=== PATIENT | male | born 1975 | race Two or more races ===

== ENCOUNTER 2020-05-30 17:03 | Emergency (ER) | payer OTHER ==
[~2020-05-30] VITALS: Ht 170.2 cm; Wt 72.7 kg
[~2020-05-30 17:03] MED LIST: LURA60TA PO
[2020-05-30 17:15] VITALS: BP 145/90
[2020-05-30] MEDS ORDERED: ACETAMINOPHEN 500 MG TABLET PO ONE (17:30)
== END 2020-05-30 18:24 | disposition home or self-care (01) ==
LOC: EMS 17:03
DX: S49.92XA Unspecified injury of left shoulder and upper arm, initial encounter (principal); F12.90 Cannabis use, unspecified, uncomplicated; V00.131A Fall from skateboard, initial encounter; Y93.51 Activity, roller skating (inline) and skateboarding; Y92.89 Other specified places as the place of occurrence of the external cause; Y99.8 Other external cause status

== ENCOUNTER 2021-01-04 14:34 | Inpatient (IN) | payer MEDICAID, OTHER ==
[~2021-01-04] VITALS: Ht 165.1 cm; Wt 76.0 kg
[2021-01-04] MEDS ORDERED: LORazepam 1 MG TABLET PO ONE (15:15)
[2021-01-04] MEDS ORDERED: HALOPERIDOL 5 MG TABLET PO ONE (15:15)
[2021-01-04 15:40] LABS: AMPHET/METH SCREEN,URINE NEGATIVE (NEGATIVE); BARBITURATE SCREEN, URINE NEGATIVE (NEGATIVE); BENZODIAZEPINES SCREEN,URINE NEGATIVE (NEGATIVE); CANNABINOID SCREEN,URINE POSITIVE (NEGATIVE); COCAINE SCREEN,URINE NEGATIVE (NEGATIVE); METHADONE SCREEN, URINE NEGATIVE (NEGATIVE); OPIATE SCREEN,URINE NEGATIVE (NEGATIVE)
[2021-01-04 15:42] LABS: PHENCYCLIDINE SCREEN,URINE NEGATIVE (NEGATIVE)
[2021-01-04 16:00] LABS: BASOPHILS % (AUTO) 0.6 % (0.0-2.0); EOSINOPHILS % (AUTO) 0.2 % (1.0-6.0); HEMATOCRIT 43.9 % (41-53); HEMOGLOBIN 14.7 g/dL (13.5-17.5); LYMPHOCYTES # (AUTO) 0.7 K/uL (1.0-4.8); LYMPHOCYTES % (AUTO) 7.8 % (22.0-44.0); MEAN CORPUSCULAR HEMOGLOBIN 32.9 pg (26.0-34.0); MEAN CORPUSCULAR HGB CONC 33.5 G/dL (31.0-37.0); MEAN CORPUSCULAR VOLUME 98 fL (80-100); MONOCYTES # (AUTO) 0.4 K/uL (0.1-1.0); MONOCYTES % (AUTO) 4.6 % (2.0-9.0); NEUTROPHILS # (AUTO) 7.8 K/uL (1.8-7.7); PLATELET COUNT (AUTO) 250 K/uL (150-450); RED BLOOD CELL COUNT(AUTO) 4.47 MIL/uL (4.50-5.90); RED CELL DISTRIBUTION WIDTH 13.7 % (11.5-14.5)
[2021-01-04 16:10] LABS: ANION GAP 8 mmol/L (8-16); CALCIUM, TOTAL 9.5 mg/dL (8.8-10.5); CARBON DIOXIDE 28 mmol/L (22-29); CHLORIDE 102 mmol/L (98-107); CREATININE 1.62 mg/dL (0.60-1.30); GLOMERULAR FILTR. RATE CALC 46 mL/min (>60); GLUCOSE,RANDOM 107 mg/dL (70-110); NEUTROPHILS % (AUTO) 86.8 % (40.0-70.0); POTASSIUM 5.1 mmol/L (3.5-5.1); SODIUM SERUM 138 mmol/L (136-145); UREA NITROGEN, BLOOD 13 mg/dL (7-18)
[2021-01-04 16:16] LABS: ALANINE AMINOTRANSFERASE 25 U/L (12-78); ALBUMIN 4.7 g/dL (3.4-5.0); ALKALINE PHOSPHATASE 54 U/L (46-116); ASPARTATE AMINOTRANSFERASE 20 U/L (15-37); BILIRUBIN,TOTAL 0.5 mg/dL (0.1-1.0)
[2021-01-04 17:07] LABS: COVID AG,FIA SOURCE NASOPHARYNGEAL
[2021-01-04] MEDS ORDERED: ZOLPIDEM TARTRATE 10 MG TABLET PO PRN (18:00)
[2021-01-04] MEDS ORDERED: HALOPERIDOL 5 MG TABLET PO PRN (18:00)
[2021-01-04 21:00] VITALS: BP 118/67
[2021-01-05 00:18] VITALS: BP 119/72
[2021-01-05 08:21] LABS: CHOL/HDL RATIO 4.4 (4.2-7.3); FREE T4 (FREE THYROXINE) 1.09 ng/dL (0.76-1.46); THYROID STIMULATING HORMONE 2.47 uIU/mL (0.36-3.74)
[2021-01-05 08:25] VITALS: BP 114/63
[2021-01-05 08:44] LABS: HEMOGLOBIN A1C 5.3 % (3.8-5.6)
[2021-01-05] MEDS ORDERED: MAGNESIUM HYDROXIDE SUSPENSION 30 ML UDCUP PO PRN (09:30)
[2021-01-05] MEDS ORDERED: OMEPRAZOLE 20 MG CAPSULE PO PRN (09:30)
[2021-01-05] MEDS ORDERED: BACITRACIN 28 GM OINTMENT TP PRN (09:30)
[2021-01-05] MEDS ORDERED: ACETAMINOPHEN 325 MG TABLET PO PRN (09:30)
[2021-01-05] MEDS ORDERED: BENZOCAINE/MENTHOL LOZENGE PO PRN (09:30)
[2021-01-05] MEDS ORDERED: CloNIDine HCL 0.1 MG TABLET PO PRN (09:30)
[2021-01-05] MEDS ORDERED: MAG HYDROX/AL HYDROX/SIMETH ES 30 ML SUSPENSION UDCUP PO PRN (09:30)
[2021-01-05] MEDS ORDERED: ONDANSETRON HCL 4 MG TABLET PO PRN (09:30)
[2021-01-05] MEDS ORDERED: IBUPROFEN 600 MG TABLET PO PRN (09:30)
[2021-01-05] MEDS ORDERED: DOCUSATE SODIUM 100 MG CAPSULE PO PRN (09:30)
[2021-01-05] MEDS ORDERED: PETROLATUM,WHITE 28 GM JELLY TP PRN (09:30)
[2021-01-05] MEDS ORDERED: LOPERAMIDE HCL 2 MG CAPSULE PO PRN (09:30)
[2021-01-05] MEDS ORDERED: ALBUTEROL SULFATE HFA 90 MCG/PUFF 8 GM INHALER IH PRN (09:30)
[2021-01-05 16:15] VITALS: BP 132/64
[2021-01-06 03:49] VITALS: BP 128/80
[2021-01-06 04:25] VITALS: BP 147/76
[2021-01-06] MEDS: LORazepam 2 MG TABLET PO PRN (04:30)
[2021-01-06 08:47] VITALS: BP 115/80
[2021-01-06 16:18] VITALS: BP 123/73
[2021-01-06] MEDS: LURASIDONE HCL 80 MG TABLET PO SCH (20:47)
[2021-01-07 03:45] VITALS: BP 116/83
[2021-01-07 08:39] VITALS: BP 140/92
[2021-01-07 16:14] VITALS: BP 123/84
[2021-01-07] MEDS: LURASIDONE HCL 80 MG TABLET PO SCH (20:07)
[2021-01-07] MEDS: LORazepam 2 MG TABLET PO PRN (21:27)
[2021-01-08 00:48] VITALS: BP 127/78
[2021-01-08 08:12] VITALS: BP 127/69
[2021-01-08 16:15] VITALS: BP 117/79
[2021-01-08] MEDS ORDERED: QUEtiapine FUMARATE 100 MG TABLET PO SCH (21:00)
[2021-01-09 00:21] VITALS: BP 124/77
[2021-01-09 07:30] LABS: COVID AG,FIA SOURCE NASOPHARYNGEAL
[2021-01-09 08:25] VITALS: BP 123/71
[2021-01-09 16:41] VITALS: BP 115/71
[2021-01-09] MEDS: QUEtiapine FUMARATE 300 MG TABLET PO SCH (20:52)
[2021-01-10 00:51] VITALS: BP 121/68
[2021-01-10 08:25] VITALS: BP 133/78
[2021-01-10 16:13] VITALS: BP 106/60
[2021-01-10] MEDS: QUEtiapine FUMARATE 300 MG TABLET PO SCH (21:00)
[2021-01-11 08:16] VITALS: BP 129/67
[2021-01-11 16:18] VITALS: BP 112/71
[2021-01-11] MEDS: QUEtiapine FUMARATE 300 MG TABLET PO SCH ×3 (20:14→20:17)
[2021-01-12 06:27] VITALS: BP 136/78
[2021-01-12 08:19] VITALS: BP 120/62
[2021-01-12] MEDS: QUEtiapine FUMARATE 300 MG TABLET PO SCH (16:24)
[2021-01-12 17:05] VITALS: BP 127/81
[2021-01-12] MEDS: LORazepam 2 MG TABLET PO PRN (19:26)
[2021-01-13 05:47] VITALS: BP 121/76
[2021-01-13 08:35] VITALS: BP 123/67
[2021-01-13 16:40] VITALS: BP 132/79
[2021-01-13] MEDS: QUEtiapine FUMARATE 300 MG TABLET PO SCH (21:22)
[2021-01-14 06:54] VITALS: BP 112/74
[2021-01-14 08:56] VITALS: BP 133/86
[2021-01-14 16:29] VITALS: BP 143/87
[2021-01-14] MEDS: QUEtiapine FUMARATE 300 MG TABLET PO SCH (20:25)
[2021-01-15 05:35] VITALS: BP 113/71
[2021-01-15 08:59] VITALS: BP 129/88
[2021-01-15 16:21] VITALS: BP 118/79
[2021-01-15] MEDS: QUEtiapine FUMARATE 300 MG TABLET PO SCH (20:10)
[2021-01-16 02:06] VITALS: BP 111/60
[2021-01-16 07:49] LABS: COVID AG,FIA SOURCE NASOPHARYNGEAL
[2021-01-16 08:39] VITALS: BP 100/66
[2021-01-16 16:19] VITALS: BP 114/82
[2021-01-16] MEDS: QUEtiapine FUMARATE 300 MG TABLET PO SCH ×2 (17:27→20:54)
[2021-01-17 06:06] VITALS: BP 107/66
[2021-01-17 08:15] VITALS: BP 114/66
[2021-01-17 16:24] VITALS: BP 136/82
[2021-01-17] MEDS: QUEtiapine FUMARATE 300 MG TABLET PO SCH (20:28)
[2021-01-18 00:51] VITALS: BP 110/62
[2021-01-18 08:25] VITALS: BP 123/74
[2021-01-18 16:21] VITALS: BP 112/66
[2021-01-18] MEDS: QUEtiapine FUMARATE 300 MG TABLET PO SCH (20:21)
[2021-01-19] VITALS: BP 131/81
[2021-01-19 11:10] VITALS: BP 127/91
[2021-01-19 16:21] VITALS: BP 140/82
[2021-01-19] MEDS: QUEtiapine FUMARATE 300 MG TABLET PO SCH (20:28)
[2021-01-20] VITALS: BP 107/72
[2021-01-20 09:04] VITALS: BP 107/72
[2021-01-20 16:36] VITALS: BP 110/79
[2021-01-20] MEDS: QUEtiapine FUMARATE 300 MG TABLET PO SCH (20:26)
[2021-01-21 05:56] VITALS: BP 116/80
[2021-01-21 08:38] VITALS: BP 110/65
[2021-01-21 16:16] VITALS: BP 129/87
[2021-01-21] MEDS: QUEtiapine FUMARATE 300 MG TABLET PO SCH (20:36)
[2021-01-22 00:18] VITALS: BP 108/70
[2021-01-22 08:09] VITALS: BP 136/63
[2021-01-22 16:20] VITALS: BP 126/80
[2021-01-22] MEDS: QUEtiapine FUMARATE 300 MG TABLET PO SCH (20:19)
[2021-01-23 04:13] VITALS: BP 124/77
[2021-01-23 07:50] LABS: COVID AG,FIA SOURCE NASAL SWAB
[2021-01-23 08:30] VITALS: BP 102/66
[2021-01-23] MEDS ORDERED: QUET300T2 PO (14:43)
== END 2021-01-23 17:44 | disposition home or self-care (01) | DRG 750 ==
LOC: EMS 14:34 → B2S 17:58
PROVIDERS: ADMIT Psychiatry & Neurology Psychiatry; ATTEND Psychiatry & Neurology Psychiatry
DX: F20.0 Paranoid schizophrenia (principal); R45.851 Suicidal ideations; F12.10 Cannabis abuse, uncomplicated; G47.00 Insomnia, unspecified; I10 Essential (primary) hypertension; Z20.822 Contact with and (suspected) exposure to COVID-19; K59.00 Constipation, unspecified; Z72.0 Tobacco use
CPT/HCPCS: 80053; 80061; 83036; 84132; 84439; 84443; 85025; 99285; G0480

== ENCOUNTER 2021-02-07 15:43 | Inpatient (IN) | payer MEDICAID, OTHER ==
[~2021-02-07] VITALS: Ht 167.6 cm; Wt 76.2 kg
[~2021-02-07 15:43] MED LIST changes: -LURA60TA PO; +QUET300T2 PO
[2021-02-07] MEDS ORDERED: ARIP5TAB37 PO (15:59)
[2021-02-07] MEDS ORDERED: TRAZ-257 PO (15:59)
[2021-02-07 16:10] LABS: COVID AG,FIA SOURCE NASOPHARYNGEAL
[2021-02-07 16:13] LABS: BASOPHILS % (AUTO) 0.6 % (0.0-2.0); EOSINOPHILS % (AUTO) 0.5 % (1.0-6.0); HEMATOCRIT 40.7 % (41-53); HEMOGLOBIN 13.5 g/dL (13.5-17.5); LYMPHOCYTES # (AUTO) 2.1 K/uL (1.0-4.8); LYMPHOCYTES % (AUTO) 23.1 % (22.0-44.0); MEAN CORPUSCULAR HEMOGLOBIN 32.3 pg (26.0-34.0); MEAN CORPUSCULAR HGB CONC 33.2 G/dL (31.0-37.0); MEAN CORPUSCULAR VOLUME 97 fL (80-100); MONOCYTES # (AUTO) 0.6 K/uL (0.1-1.0); MONOCYTES % (AUTO) 6.8 % (2.0-9.0); NEUTROPHILS # (AUTO) 6.2 K/uL (1.8-7.7); PLATELET COUNT (AUTO) 263 K/uL (150-450); RED BLOOD CELL COUNT(AUTO) 4.19 MIL/uL (4.50-5.90); RED CELL DISTRIBUTION WIDTH 13.4 % (11.5-14.5)
[2021-02-07 16:23] LABS: ANION GAP 6 mmol/L (8-16); CALCIUM, TOTAL 8.9 mg/dL (8.8-10.5); CARBON DIOXIDE 29 mmol/L (22-29); CHLORIDE 104 mmol/L (98-107); GLOMERULAR FILTR. RATE CALC 47 mL/min (>60); GLUCOSE,RANDOM 98 mg/dL (70-110); POTASSIUM 3.9 mmol/L (3.5-5.1); SODIUM SERUM 139 mmol/L (136-145); UREA NITROGEN, BLOOD 14 mg/dL (7-18)
[2021-02-07 16:28] LABS: ALANINE AMINOTRANSFERASE 31 U/L (12-78); ALBUMIN 4.1 g/dL (3.4-5.0); ALKALINE PHOSPHATASE 55 U/L (46-116); ASPARTATE AMINOTRANSFERASE 27 U/L (15-37); BILIRUBIN,TOTAL 0.3 mg/dL (0.1-1.0); TOTAL PROTEIN, SERUM 7.1 g/dL (6.4-8.2)
[2021-02-07 17:25] LABS: AMPHET/METH SCREEN,URINE NEGATIVE (NEGATIVE); BARBITURATE SCREEN, URINE NEGATIVE (NEGATIVE); BENZODIAZEPINES SCREEN,URINE NEGATIVE (NEGATIVE); CANNABINOID SCREEN,URINE NEGATIVE (NEGATIVE); COCAINE SCREEN,URINE NEGATIVE (NEGATIVE); METHADONE SCREEN, URINE NEGATIVE (NEGATIVE); OPIATE SCREEN,URINE NEGATIVE (NEGATIVE)
[2021-02-07 17:26] LABS: PHENCYCLIDINE SCREEN,URINE NEGATIVE (NEGATIVE)
[2021-02-07] MEDS ORDERED: LORazepam 2 MG TABLET PO PRN (18:00)
[2021-02-07] MEDS ORDERED: HALOPERIDOL 5 MG TABLET PO PRN (18:00)
[2021-02-07 21:23] VITALS: BP 136/84
[2021-02-07] MEDS: ZOLPIDEM TARTRATE 10 MG TABLET PO PRN (21:35)
[2021-02-08 03:28] VITALS: BP 142/91
[2021-02-08] MEDS ORDERED: CloNIDine HCL 0.1 MG TABLET PO PRN (06:15)
[2021-02-08] MEDS ORDERED: ACETAMINOPHEN 325 MG TABLET PO PRN (06:15)
[2021-02-08] MEDS ORDERED: DOCUSATE SODIUM 100 MG CAPSULE PO PRN (06:15)
[2021-02-08] MEDS ORDERED: BENZOCAINE/MENTHOL LOZENGE PO PRN (06:15)
[2021-02-08] MEDS ORDERED: ONDANSETRON HCL 4 MG TABLET PO PRN (06:15)
[2021-02-08] MEDS ORDERED: IBUPROFEN 600 MG TABLET PO PRN (06:15)
[2021-02-08] MEDS ORDERED: OMEPRAZOLE 20 MG CAPSULE PO PRN (06:15)
[2021-02-08] MEDS ORDERED: MAG HYDROX/AL HYDROX/SIMETH ES 30 ML SUSPENSION UDCUP PO PRN (06:15)
[2021-02-08] MEDS ORDERED: MAGNESIUM HYDROXIDE SUSPENSION 30 ML UDCUP PO PRN (06:15)
[2021-02-08] MEDS ORDERED: LOPERAMIDE HCL 2 MG CAPSULE PO PRN (06:15)
[2021-02-08] MEDS ORDERED: ALBUTEROL SULFATE HFA 90 MCG/PUFF 8 GM INHALER IH PRN (06:15)
[2021-02-08] MEDS ORDERED: BACITRACIN 28 GM OINTMENT TP PRN (06:15)
[2021-02-08] MEDS ORDERED: PETROLATUM,WHITE 28 GM JELLY TP PRN (06:15)
[2021-02-08 08:53] VITALS: BP 136/86
[2021-02-08 16:11] VITALS: BP 107/66
[2021-02-08] MEDS: ZOLPIDEM TARTRATE 10 MG TABLET PO PRN (21:07)
[2021-02-09 01:19] VITALS: BP 133/79
[2021-02-09 08:09] LABS: ANION GAP 7 mmol/L (8-16); CALCIUM, TOTAL 8.7 mg/dL (8.8-10.5); CARBON DIOXIDE 29 mmol/L (22-29); CHLORIDE 105 mmol/L (98-107); CREATININE 1.26 mg/dL (0.60-1.30); FREE T4 (FREE THYROXINE) 0.95 ng/dL (0.76-1.46); GLOMERULAR FILTR. RATE CALC > 60 mL/min (>60); GLUCOSE,RANDOM 87 mg/dL (70-110); PHOSPHORUS 3.3 mg/dL (2.5-4.9); POTASSIUM 4.4 mmol/L (3.5-5.1); SODIUM SERUM 141 mmol/L (136-145); THYROID STIMULATING HORMONE 1.56 uIU/mL (0.36-3.74); UREA NITROGEN, BLOOD 13 mg/dL (7-18)
[2021-02-09 08:34] VITALS: BP 131/60
[2021-02-09 16:31] VITALS: BP 105/62
[2021-02-10 01:52] VITALS: BP 119/81
[2021-02-10 08:55] VITALS: BP 143/88
[2021-02-10] MEDS: ARIPiprazole 15 MG TABLET PO SCH (09:10)
[2021-02-10 17:06] VITALS: BP 143/80
[2021-02-10] MEDS: BENZTROPINE MESYLATE 2 MG TABLET PO SCH (19:00)
[2021-02-10] MEDS: HALOPERIDOL 10 MG TABLET PO SCH (19:00)
[2021-02-11 01:41] VITALS: BP 121/87
[2021-02-11 08:23] VITALS: BP 122/89
[2021-02-11] MEDS: ARIPiprazole 15 MG TABLET PO SCH (08:34)
[2021-02-11] MEDS: RisperiDONE 3 MG TABLET PO SCH (16:17)
[2021-02-11 16:18] VITALS: BP 138/79
[2021-02-11] MEDS: HALOPERIDOL 10 MG TABLET PO SCH (20:28)
[2021-02-11] MEDS: BENZTROPINE MESYLATE 2 MG TABLET PO SCH (20:28)
[2021-02-12] VITALS: BP 100/68
[2021-02-12 08:15] VITALS: BP 116/74
[2021-02-12 08:23] LABS: COVID AG,FIA SOURCE NASOPHARYNGEAL
[2021-02-12] MEDS: RisperiDONE 3 MG TABLET PO SCH ×2 (09:07→16:35)
[2021-02-12] MEDS: ARIPiprazole 15 MG TABLET PO SCH (09:07)
[2021-02-12 16:02] VITALS: BP 126/73
[2021-02-12] MEDS: HALOPERIDOL 10 MG TABLET PO SCH (20:32)
[2021-02-12] MEDS: BENZTROPINE MESYLATE 2 MG TABLET PO SCH (20:32)
[2021-02-13] VITALS: BP 112/74
[2021-02-13 08:17] VITALS: BP 106/63
[2021-02-13] MEDS: ARIPiprazole 15 MG TABLET PO SCH (08:17)
[2021-02-13] MEDS: RisperiDONE 3 MG TABLET PO SCH ×2 (08:17→16:02)
[2021-02-13 16:09] VITALS: BP 140/90
[2021-02-13] MEDS: HALOPERIDOL 10 MG TABLET PO SCH (20:49)
[2021-02-13] MEDS: BENZTROPINE MESYLATE 2 MG TABLET PO SCH (20:49)
[2021-02-14 02:06] VITALS: BP 126/81
[2021-02-14 08:19] VITALS: BP 119/77
[2021-02-14] MEDS: RisperiDONE 3 MG TABLET PO SCH ×2 (08:24→16:33)
[2021-02-14] MEDS: ARIPiprazole 15 MG TABLET PO SCH (08:24)
[2021-02-14 16:11] VITALS: BP 113/65
[2021-02-14] MEDS: BENZTROPINE MESYLATE 2 MG TABLET PO SCH (20:32)
[2021-02-14] MEDS: HALOPERIDOL 10 MG TABLET PO SCH (20:33)
[2021-02-15 01:02] VITALS: BP 120/69
[2021-02-15 08:08] VITALS: BP 112/68
[2021-02-15] MEDS: RisperiDONE 3 MG TABLET PO SCH ×2 (08:43→16:13)
[2021-02-15] MEDS: ARIPiprazole 15 MG TABLET PO SCH (08:43)
[2021-02-15 16:09] VITALS: BP 117/80
[2021-02-15] MEDS: BENZTROPINE MESYLATE 2 MG TABLET PO SCH (20:43)
[2021-02-15] MEDS: HALOPERIDOL 10 MG TABLET PO SCH (20:44)
[2021-02-15] MEDS: ZOLPIDEM TARTRATE 10 MG TABLET PO PRN (20:51)
[2021-02-16 05:18] VITALS: BP 118/82
[2021-02-16 08:05] VITALS: BP 106/71
[2021-02-16] MEDS: ARIPiprazole 15 MG TABLET PO SCH (08:16)
[2021-02-16] MEDS: RisperiDONE 3 MG TABLET PO SCH ×2 (08:16→16:47)
[2021-02-16 16:02] VITALS: BP 111/64
[2021-02-16] MEDS: BENZTROPINE MESYLATE 2 MG TABLET PO SCH (20:53)
[2021-02-16] MEDS: HALOPERIDOL 10 MG TABLET PO SCH (20:54)
[2021-02-16] MEDS: ZOLPIDEM TARTRATE 10 MG TABLET PO PRN (20:56)
[2021-02-17] VITALS: BP 124/64
[2021-02-17 08:05] VITALS: BP 112/64
[2021-02-17] MEDS: ARIPiprazole 15 MG TABLET PO SCH (08:42)
[2021-02-17] MEDS: RisperiDONE 3 MG TABLET PO SCH ×2 (08:42→16:38)
[2021-02-17 16:09] VITALS: BP 102/61
[2021-02-17] MEDS: BENZTROPINE MESYLATE 2 MG TABLET PO SCH (20:30)
[2021-02-17] MEDS: HALOPERIDOL 10 MG TABLET PO SCH (20:30)
[2021-02-18 00:08] VITALS: BP 121/74
[2021-02-18 08:15] VITALS: BP 125/72
[2021-02-18] MEDS: RisperiDONE 3 MG TABLET PO SCH ×2 (08:36→16:18)
[2021-02-18] MEDS: ARIPiprazole 15 MG TABLET PO SCH (08:37)
[2021-02-18 16:07] VITALS: BP 111/71
[2021-02-18] MEDS: BENZTROPINE MESYLATE 2 MG TABLET PO SCH (20:15)
[2021-02-18] MEDS: HALOPERIDOL 10 MG TABLET PO SCH (20:15)
[2021-02-19 00:13] VITALS: BP 120/62
[2021-02-19 07:51] LABS: COVID AG,FIA SOURCE NASAL SWAB
[2021-02-19 08:05] VITALS: BP 110/73
[2021-02-19] MEDS: RisperiDONE 3 MG TABLET PO SCH (08:18)
[2021-02-19] MEDS: ARIPiprazole 15 MG TABLET PO SCH (08:19)
[2021-02-19] MEDS ORDERED: ARIP15TA27 PO (13:56)
[2021-02-19] MEDS ORDERED: HALO10 PO (13:57)
[2021-02-19] MEDS ORDERED: BENZ2TAB10 PO (13:57)
[2021-02-19] MEDS ORDERED: RISP3TAB44 PO (13:57)
== END 2021-02-19 14:45 | disposition home or self-care (01) | DRG 750 ==
LOC: EMS 15:43 → B2S 18:51
PROVIDERS: ADMIT Psychiatry & Neurology Psychiatry; ATTEND Psychiatry & Neurology Psychiatry
DX: F20.0 Paranoid schizophrenia (principal); R45.851 Suicidal ideations; Z91.14 Patient's other noncompliance with medication regimen; F12.10 Cannabis abuse, uncomplicated; G47.00 Insomnia, unspecified; I10 Essential (primary) hypertension; K59.00 Constipation, unspecified; Z20.822 Contact with and (suspected) exposure to COVID-19; Z72.0 Tobacco use; N28.9 Disorder of kidney and ureter, unspecified
CPT/HCPCS: 80048; 80053; 83735; 84100; 84439; 84443; 85025; 87081; 99285; G0480

== ENCOUNTER 2021-06-06 15:52 | Emergency (ER) | payer MEDICAID, OTHER ==
[~2021-06-06] VITALS: Ht 167.6 cm; Wt 75.0 kg
[~2021-06-06 15:52] MED LIST changes: +ARIP15TA27 PO; +BENZ2TAB10 PO; +HALO10 PO; -QUET300T2 PO; +RISP3TAB44 PO
[2021-06-06 17:09] VITALS: BP 123/78
[2021-06-06 17:27] LABS: BASOPHILS % (AUTO) 1.3 % (0.0-2.0); HEMATOCRIT 45.9 % (41-53); HEMOGLOBIN 15.7 g/dL (13.5-17.5); LYMPHOCYTES # (AUTO) 2.1 K/uL (1.0-4.8); LYMPHOCYTES % (AUTO) 26.7 % (22.0-44.0); MEAN CORPUSCULAR HEMOGLOBIN 32.7 pg (26.0-34.0); MEAN CORPUSCULAR HGB CONC 34.2 G/dL (31.0-37.0); MEAN CORPUSCULAR VOLUME 96 fL (80-100); MONOCYTES # (AUTO) 0.6 K/uL (0.1-1.0); MONOCYTES % (AUTO) 7.2 % (2.0-9.0); NEUTROPHILS # (AUTO) 5.1 K/uL (1.8-7.7); NEUTROPHILS % (AUTO) 63.8 % (40.0-70.0); PLATELET COUNT (AUTO) 230 K/uL (150-450); RED CELL DISTRIBUTION WIDTH 13.1 % (11.5-14.5)
[2021-06-06 17:37] LABS: ANION GAP 12 mmol/L (8-16); CALCIUM, TOTAL 9.7 mg/dL (8.8-10.5); CARBON DIOXIDE 30 mmol/L (22-29); CHLORIDE 102 mmol/L (98-107); GLOMERULAR FILTR. RATE CALC 55 mL/min (>60); GLUCOSE,RANDOM 91 mg/dL (70-110); POTASSIUM 4.3 mmol/L (3.5-5.1); SODIUM SERUM 144 mmol/L (136-145); UREA NITROGEN, BLOOD 17 mg/dL (7-18)
[2021-06-06 17:56] LABS: ALANINE AMINOTRANSFERASE 22 U/L (12-78); ALBUMIN 4.8 g/dL (3.4-5.0); ALKALINE PHOSPHATASE 76 U/L (46-116); ASPARTATE AMINOTRANSFERASE 20 U/L (15-37); BILIRUBIN,TOTAL 0.4 mg/dL (0.1-1.0); TOTAL PROTEIN, SERUM 8.7 g/dL (6.4-8.2)
== END 2021-06-06 18:26 | disposition home or self-care (01) ==
LOC: EMS 16:05
DX: F20.9 Schizophrenia, unspecified (principal); F12.90 Cannabis use, unspecified, uncomplicated; Z79.899 Other long term (current) drug therapy
CPT/HCPCS: 36415; 80053; 85025; 99284; G0480

== ENCOUNTER 2022-02-05 10:33 | Emergency (ER) | payer OTHER ==
[~2022-02-05] VITALS: Ht 167.6 cm; Wt 70.5 kg
[~2022-02-05 10:33] MED LIST changes: -BENZ2TAB10 PO; +BENZ2TAB76 PO; -HALO10 PO; +HALO10TA21 PO
[2022-02-05 10:43] VITALS: BP 105/73
== END 2022-02-05 12:49 | disposition home or self-care (01) ==
LOC: EMS 10:41
DX: S63.501A Unspecified sprain of right wrist, initial encounter (principal); F20.0 Paranoid schizophrenia; F12.90 Cannabis use, unspecified, uncomplicated; Z98.890 Other specified postprocedural states; X58.XXXA Exposure to other specified factors, initial encounter; Y93.51 Activity, roller skating (inline) and skateboarding; Y92.89 Other specified places as the place of occurrence of the external cause; Y99.8 Other external cause status
CPT/HCPCS: 99283

== ENCOUNTER 2022-03-19 13:56 | Emergency (ER) | payer OTHER ==
[~2022-03-19] VITALS: Ht 167.6 cm; Wt 68.0 kg
[2022-03-19 15:28] VITALS: BP 121/76
[2022-03-19 15:57] LABS: COVID AG,FIA SOURCE NASAL SWAB
== END 2022-03-19 17:50 | disposition home or self-care (01) ==
LOC: EMS 13:56
DX: U07.1 COVID-19 (principal); F20.9 Schizophrenia, unspecified; F12.90 Cannabis use, unspecified, uncomplicated; Z79.899 Other long term (current) drug therapy
CPT/HCPCS: 99283; 87426; U0003; C9803

== ENCOUNTER 2022-10-31 20:15 | Inpatient (IN) | payer MEDICAID, OTHER ==
[~2022-10-31] VITALS: Ht 167.6 cm; Wt 70.0 kg
[2022-10-31 23:19] LABS: BASOPHILS % (AUTO) 0.9 % (0.0-2.0); EOSINOPHILS % (AUTO) 0.9 % (1.0-6.0); HEMATOCRIT 42.4 % (41-53); HEMOGLOBIN 14.4 g/dL (13.5-17.5); LYMPHOCYTES # (AUTO) 2.3 K/uL (1.0-4.8); LYMPHOCYTES % (AUTO) 30.4 % (22.0-44.0); MEAN CORPUSCULAR HEMOGLOBIN 33.4 pg (26.0-34.0); MEAN CORPUSCULAR VOLUME 98 fL (80-100); MONOCYTES # (AUTO) 0.7 K/uL (0.1-1.0); MONOCYTES % (AUTO) 9.1 % (2.0-9.0); NEUTROPHILS # (AUTO) 4.5 K/uL (1.8-7.7); NEUTROPHILS % (AUTO) 58.7 % (40.0-70.0); PLATELET COUNT (AUTO) 207 K/uL (150-450); RED BLOOD CELL COUNT(AUTO) 4.31 MIL/uL (4.50-5.90); RED CELL DISTRIBUTION WIDTH 13.9 % (11.5-14.5)
[2022-10-31 23:28] LABS: ANION GAP 8 mmol/L (8-16); CALCIUM, TOTAL 9.1 mg/dL (8.8-10.5); CARBON DIOXIDE 26 mmol/L (22-29); CHLORIDE 103 mmol/L (98-107); CREATININE 1.31 mg/dL (0.60-1.30); GLOMERULAR FILTR. RATE CALC 59 mL/min (>60); GLUCOSE,RANDOM 98 mg/dL (70-110); POTASSIUM 3.9 mmol/L (3.5-5.1); SODIUM SERUM 137 mmol/L (136-145); UREA NITROGEN, BLOOD 25 mg/dL (7-18)
[2022-10-31 23:34] LABS: ALANINE AMINOTRANSFERASE 21 U/L (12-78); ALBUMIN 4.6 g/dL (3.4-5.0); ALKALINE PHOSPHATASE 64 U/L (46-116); ASPARTATE AMINOTRANSFERASE 30 U/L (15-37); BILIRUBIN,TOTAL 0.7 mg/dL (0.1-1.0); TOTAL PROTEIN, SERUM 8.1 g/dL (6.4-8.2)
[2022-11-01 00:11] LABS: AMPHET/METH SCREEN,URINE NEGATIVE (NEGATIVE); BARBITURATE SCREEN, URINE NEGATIVE (NEGATIVE); BENZODIAZEPINES SCREEN,URINE NEGATIVE (NEGATIVE); CANNABINOID SCREEN,URINE POSITIVE (NEGATIVE); COCAINE SCREEN,URINE NEGATIVE (NEGATIVE); METHADONE SCREEN, URINE NEGATIVE (NEGATIVE); OPIATE SCREEN,URINE NEGATIVE (NEGATIVE); PHENCYCLIDINE SCREEN,URINE NEGATIVE (NEGATIVE)
[2022-11-01] MEDS ORDERED: HALOPERIDOL 5 MG TABLET PO ONE (02:30)
[2022-11-01] MEDS ORDERED: LORazepam 1 MG TABLET PO ONE (02:30)
[2022-11-01 02:32] LABS: COVID AG,FIA SOURCE NASAL SWAB
[2022-11-01] MEDS ORDERED: ZOLPIDEM TARTRATE 10 MG TABLET PO PRN (02:45)
[2022-11-01 04:41] LABS: APPEARANCE,URINE TURBID (CLEAR); BILIRUBIN,URINE NEGATIVE (NEGATIVE); GLUCOSE, URINE (UA) NEGATIVE (NEGATIVE); KETONES,URINE NEGATIVE (NEGATIVE); LEUKOCYTE ESTERASE ,URINE NEGATIVE (NEGATIVE); NITRATE,URINE NEGATIVE (NEGATIVE); OCCULT BLOOD,URINE NEGATIVE (NEGATIVE); PH,URINE 5.5 (5.0-8.0); PROTEIN,URINE 30-70 mg/dL (NEGATIVE); SPECIFIC GRAVITIY, URINE 1.033 (1.003-1.030); UROBILINOGEN,URINE <=1.0 mg/dL (<=1.0)
[2022-11-01] MEDS ORDERED: DOCUSATE SODIUM 100 MG CAPSULE PO PRN (05:00)
[2022-11-01] MEDS ORDERED: OMEPRAZOLE 20 MG CAPSULE PO PRN (05:00)
[2022-11-01] MEDS ORDERED: IBUPROFEN 600 MG TABLET PO PRN (05:00)
[2022-11-01] MEDS ORDERED: ONDANSETRON HCL 4 MG TABLET PO PRN (05:00)
[2022-11-01] MEDS ORDERED: MAG HYDROX/AL HYDROX/SIMETH ES 30 ML SUSPENSION UDCUP PO PRN (05:00)
[2022-11-01] MEDS ORDERED: ACETAMINOPHEN 325 MG TABLET PO PRN (05:00)
[2022-11-01] MEDS ORDERED: CloNIDine HCL 0.1 MG TABLET PO PRN (05:00)
[2022-11-01] MEDS ORDERED: LOPERAMIDE HCL 2 MG CAPSULE PO PRN (05:00)
[2022-11-01] MEDS ORDERED: MAGNESIUM HYDROXIDE SUSPENSION 30 ML UDCUP PO PRN (05:00)
[2022-11-01] MEDS ORDERED: ALBUTEROL SULFATE HFA 90 MCG/PUFF 8 GM INHALER IH PRN (05:00)
[2022-11-01] MEDS ORDERED: PETROLATUM,WHITE 28 GM JELLY TP PRN (05:00)
[2022-11-01] MEDS ORDERED: BACITRACIN 28 GM OINTMENT TP PRN (05:00)
[2022-11-01] MEDS ORDERED: BENZOCAINE/MENTHOL LOZENGE PO PRN (05:00)
[2022-11-01] MEDS ORDERED: INFLUENZA VIRUS VACCINE QVS 2022-23 (6MO+)/PF 60 MCG/0.5 ML SYRINGE IM. ONE (05:15)
[2022-11-01 05:44] VITALS: BP 139/75
[2022-11-01 08:00] VITALS: BP 109/83
[2022-11-01 16:24] VITALS: BP 105/55
[2022-11-01] MEDS: LORazepam 2 MG TABLET PO PRN (21:06)
[2022-11-01] MEDS: HALOPERIDOL 5 MG TABLET PO PRN (21:06)
[2022-11-01 21:26] VITALS: BP 129/75
[2022-11-02 08:02] VITALS: BP 123/81
[2022-11-02 16:26] VITALS: BP 140/102
[2022-11-02] MEDS: ARIPiprazole 15 MG TABLET PO SCH (17:34)
[2022-11-02 20:46] VITALS: BP 129/90
[2022-11-03] MEDS: ARIPiprazole 15 MG TABLET PO SCH (08:27)
[2022-11-03 11:15] VITALS: BP 122/69
[2022-11-03] MEDS: LORazepam 2 MG TABLET PO PRN (15:04)
[2022-11-03] MEDS: HALOPERIDOL 5 MG TABLET PO PRN (15:04)
[2022-11-03 16:24] VITALS: BP 126/74
[2022-11-03 21:00] VITALS: BP 126/92
[2022-11-04] MEDS: ARIPiprazole 15 MG TABLET PO SCH (08:11)
[2022-11-04 11:17] VITALS: BP 123/76
[2022-11-04 14:38] VITALS: BP 123/76
[2022-11-04 16:15] VITALS: BP 147/80
[2022-11-04 21:52] VITALS: BP 118/69
[2022-11-05 09:42] VITALS: BP 110/99
[2022-11-05] MEDS: ARIPiprazole 15 MG TABLET PO SCH (09:51)
[2022-11-05 16:20] VITALS: BP 123/72
[2022-11-05 21:13] VITALS: BP 91/77
[2022-11-06] MEDS: ARIPiprazole 15 MG TABLET PO SCH (08:15)
[2022-11-06 08:30] VITALS: BP 113/84
[2022-11-06 16:10] VITALS: BP 128/91
[2022-11-06 20:39] VITALS: BP 139/92
[2022-11-07 06:44] LABS: COVID AG,FIA SOURCE NASAL SWAB
[2022-11-07 08:42] VITALS: BP 121/84
[2022-11-07] MEDS: ARIPiprazole 15 MG TABLET PO SCH (08:49)
[2022-11-07] MEDS ORDERED: ARIP15TA27 PO (14:58)
[2022-11-07 16:22] VITALS: BP 127/74
[2022-11-07 21:20] VITALS: BP 123/81
[2022-11-08] MEDS: ARIPiprazole 15 MG TABLET PO SCH (08:47)
[2022-11-08 08:48] VITALS: BP 113/64
== END 2022-11-08 10:28 | disposition home or self-care (01) | DRG 750 ==
LOC: EMS 20:16 → 3EI 11-01 02:00
PROVIDERS: ADMIT Psychiatry & Neurology Psychiatry; ATTEND Psychiatry & Neurology Psychiatry
DX: F20.9 Schizophrenia, unspecified (principal); F10.10 Alcohol abuse, uncomplicated; F12.10 Cannabis abuse, uncomplicated; F17.200 Nicotine dependence, unspecified, uncomplicated; F60.0 Paranoid personality disorder; Z20.822 Contact with and (suspected) exposure to COVID-19; I10 Essential (primary) hypertension; F41.9 Anxiety disorder, unspecified; K21.9 Gastro-esophageal reflux disease without esophagitis; G47.00 Insomnia, unspecified; Z56.0 Unemployment, unspecified; Z79.899 Other long term (current) drug therapy
CPT/HCPCS: 80053; 80307; 81003; 85025; 99285; G0480

== ENCOUNTER 2024-09-29 12:39 | Emergency (ER) | payer MEDICAID, OTHER ==
[~2024-09-29] VITALS: Ht 167.6 cm; Wt 70.5 kg
[~2024-09-29 12:39] MED LIST changes: -BENZ2TAB76 PO; -HALO10TA21 PO; -RISP3TAB44 PO
[2024-09-29 12:51] VITALS: TEMP 98
[2024-09-29 13:08] LABS: BASOPHILS % (AUTO) 0.8 % (0.0-2.0); EOSINOPHILS % (AUTO) 0.3 % (1.0-6.0); HEMATOCRIT 45.7 % (41-53); HEMOGLOBIN 15.4 g/dL (13.5-17.5); LYMPHOCYTES # (AUTO) 1.5 K/uL (1.0-4.8); LYMPHOCYTES % (AUTO) 20.7 % (22.0-44.0); MEAN CORPUSCULAR HEMOGLOBIN 32.9 pg (26.0-34.0); MEAN CORPUSCULAR HGB CONC 33.7 G/dL (31.0-37.0); MEAN CORPUSCULAR VOLUME 98 fL (80-100); MONOCYTES # (AUTO) 0.4 K/uL (0.1-1.0); NEUTROPHILS # (AUTO) 5.2 K/uL (1.8-7.7); NEUTROPHILS % (AUTO) 72.2 % (40.0-70.0); PLATELET COUNT (AUTO) 251 K/uL (150-450); RED BLOOD CELL COUNT(AUTO) 4.68 MIL/uL (4.50-5.90); WHITE BLOOD COUNT (AUTO) 7.2 K/uL (4.5-11.0)
[2024-09-29 13:19] LABS: ANION GAP 9 mmol/L (8-16); CALCIUM, TOTAL 8.7 mg/dL (8.8-10.5); CARBON DIOXIDE 30 mmol/L (22-29); CHLORIDE 108 mmol/L (98-107); CREATININE 1.57 mg/dL (0.60-1.30); GLOMERULAR FILTR. RATE CALC 47 mL/min (>60); GLUCOSE,RANDOM 81 mg/dL (70-110); SODIUM SERUM 147 mmol/L (136-145); UREA NITROGEN, BLOOD 12 mg/dL (7-18)
[2024-09-29 13:27] LABS: ALCOHOL, BLOOD (SERUM) < 3 mg/dL (0-10)
[2024-09-29 15:21] LABS: COVID AG,FIA SOURCE NASAL SWAB
[2024-09-29 15:26] LABS: APPEARANCE,URINE CLEAR (CLEAR); BILIRUBIN,URINE NEGATIVE (NEGATIVE); COLOR,URINE YELLOW (YELLOW); GLUCOSE, URINE (UA) NEGATIVE (NEGATIVE); LEUKOCYTE ESTERASE ,URINE NEGATIVE (NEGATIVE); NITRATE,URINE NEGATIVE (NEGATIVE); OCCULT BLOOD,URINE NEGATIVE (NEGATIVE); PH,URINE 6.5 (5.0-8.0); PH,URINE DRUG SCREEN 6.5 (5.0-8.0); PROTEIN,URINE 30-70 mg/dL (NEGATIVE); SPECIFIC GRAVITIY, URINE 1.033 (1.003-1.030); UROBILINOGEN,URINE <=1.0 mg/dL (<=1.0)
[2024-09-29 15:32] LABS: ALCOHOL, URINE DRUG SCREEN NEGATIVE (NEGATIVE); AMPHET/METH SCREEN,URINE NEGATIVE (NEGATIVE); BARBITURATE SCREEN, URINE NEGATIVE (NEGATIVE); BENZODIAZEPINES SCREEN,URINE NEGATIVE (NEGATIVE); CANNABINOID SCREEN,URINE POSITIVE (NEGATIVE); COCAINE SCREEN,URINE NEGATIVE (NEGATIVE); METHADONE SCREEN, URINE NEGATIVE (NEGATIVE); OPIATE SCREEN,URINE NEGATIVE (NEGATIVE); PHENCYCLIDINE SCREEN,URINE NEGATIVE (NEGATIVE)
[2024-09-29 16:02] VITALS: BP 127/98; PULSE 94; RESP 16; O2SAT 98
[2024-09-29 16:41] LABS: SARS-COV2 (COVID) ANTIGEN,FIA Negative (Negative)
[2024-09-30] MEDS ORDERED: HYDR-4527 PO (01:41)
[2024-09-30] MEDS ORDERED: SERT-158 PO (01:43)
== END 2024-09-29 16:04 | disposition home or self-care (01) ==
LOC: EMS 12:39
DX: F20.0 Paranoid schizophrenia (principal); F12.90 Cannabis use, unspecified, uncomplicated; Z79.899 Other long term (current) drug therapy; Z20.822 Contact with and (suspected) exposure to COVID-19
CPT/HCPCS: 99283; 87426; 80048; 81003; 85025; 36415; 80307; G0480; 99284